=== PATIENT | male | born 1970 | race Caucasian/White ===

== ENCOUNTER 2025-02-13 00:24 | Emergency (ER) | payer SELFPAY ==
[2025-02-13 00:34] VITALS: BP 114/74; PULSE 82; RESP 20; TEMP 97.3; BMI 24.3
== END 2025-02-13 05:23 | disposition home or self-care (01) ==
LOC: JER 00:24
DX: F10.129 Alcohol abuse with intoxication, unspecified (principal); Y90.9 Presence of alcohol in blood, level not specified
CPT/HCPCS: 82962; 99283-25